=== PATIENT | male | born 1965 | race Hispanic/Latino ===

== ENCOUNTER 2020-09-02 09:19 | Emergency (ER) | payer BC ==
[2020-09-02] MEDS ORDERED: TETANUS & DIPHTHERIA TOX,ADULT 0.5 ML VIAL ONE (10:05)
--- NOTE | 2020-09-02 10:11 | ER ---
Nurse's Notes [facility] Name: Rico Eric Age: 55 yrs Sex: Male : 1965 Arrival Date: 09/02/2020 Time: 09:20 Bed 24 Private MD: Diagnosis: Puncture wound without foreign body of left hand Presentation: 09/02 09:25 Chief complaint: Patient states: puncture wound to palm of left hand with screwdriver aa5 just [employer], no active bleeding noted at this time, dry blood noted to left hand. 09:25 Coronavirus screen: At this time, the client does not indicate any symptoms associated aa5 with coronavirus-19. Ebola Screen: Patient negative for fever greater than or equal to 101.5 degrees Fahrenheit, and additional compatible Ebola Virus Disease symptoms. Initial Sepsis Screen: Does the patient meet any 2 criteria? No. Patient's initial sepsis screen is negative. Does the patient have a suspected source of infection? No. Patient's initial sepsis screen is negative. Risk Assessment: Do you want to hurt yourself or someone else? Patient reports no desire to harm self or others. Onset of symptoms was September 02, 2020. 09:25 Acuity: DK 4 aa5 09:25 Method Of Arrival: Ambulatory aa5 Historical: - Allergies: 09:36 No Known Allergies; aa5 - Home Meds: 09:36 None [Active]; aa5 - PMHx: 09:36 None; aa5 - PSHx: 09:36 None; aa5 - Immunization history:: Last tetanus immunization: unknown. - Social history:: Smoking status: Patient denies any tobacco usage or history of. Screenin:30 Abuse screen: Denies threats or abuse. Nutritional screening: No deficits noted. aa5 Tuberculosis screening: No symptoms or risk factors identified. Fall Risk None identified. Assessment: 09:30 General: Appears uncomfortable, Behavior is calm, cooperative. Pain: Complains of pain aa5 in palm of left hand Pain currently is 5 out of 10 on a pain scale. Quality of pain is described as tender, throbbing, Is continuous. Neuro: Level of Consciousness is awake, alert, obeys commands, Oriented to person, place, time, situation. Cardiovascular: Capillary refill < 3 seconds is brisk in bilateral fingers Patient's skin is warm and dry. Respiratory: Airway is patent Respiratory effort is even, unlabored, Respiratory pattern is regular, symmetrical. GI: Abdomen is round Abd is soft and non tender X 4 quads. : No signs and/or symptoms were reported regarding the genitourinary system. EENT: No signs and/or symptoms were reported regarding the EENT system. Derm: Skin is pink, warm \T\ dry. small puncture wound noted to palm of left hand. Musculoskeletal: Range of motion: intact in all extremities. 09:35 Reassessment: Puncture wound cleaned with Hibiclens and saline. aa5 09:56 Reassessment: Patient is alert, oriented x 3, equal unlabored respirations, skin aa5 warm/dry/pink. Patient states feeling better. Vital Signs: 09:25 BP 131 / 77; Pulse 67; Resp 16 S; Temp 97.8(TE); Pulse Ox 98% on R/A; Weight 68.04 kg aa5 (R); Height 5 ft. 2 in. (157.48 cm) (R); 09:25 Body Mass Index 27.44 (68.04 kg, 157.48 cm) aa5 ED Course: 09:20 Patient arrived in ED. am2 09:24 Arm band placed on Patient placed in an exam room, on a stretcher. aa5 09:24 Patient has correct armband on for positive identification. Bed in low position. Call aa5 light in reach. Side rails up X 1. 09:26 E[facility] Gaines [facility]C [facility]. kb 09:26 Santiago Rutherford MD is Attending Physician. kb 09:28 Kayce Lujan, VAZQUEZ is Primary Nurse. aa5 09:36 Triage completed. aa5 09:56 Hand Left 3 View XRAY In Process Unspecified. EDMS 10:16 No provider procedures requiring assistance completed. Patient did not have IV access ca1 during this emergency room visit. Administered Medications: 09:56 Drug: Tetanus-Diphtheria Toxoid Adult 0.5 ml {Subgrade Tester: [employer]. Exp: aa5 09/02/2021. Lot #: [id number]. } Route: IM; Site: right deltoid; Outcome: 10:10 Discharge ordered by . kb 10:16 Discharged to home ambulatory, with family. ca1 10:16 Condition: stable 10:16 Discharge instructions given to patient, Instructed on discharge instructions, follow up and referral plans. medication usage, wound care, Demonstrated understanding of instructions, follow-up care, medications, wound care, Prescriptions given X 1. 10:17 Patient left the ED. ca1 Signatures: Dispatcher [employer] EDEne Blanc, TRANSITIONAL CARE MANAGER-C TRANSITIONAL CARE MANAGER-Kayce Valladares RN RN aa5 Lesly Carballo am2 Lainey Yoon RN RN ca1
--- NOTE | 2020-09-02 10:11 | EDPHYS ---
Physician Documentation [facility] Name: Rico Eric Age: 55 yrs Sex: Male : 1965 Arrival Date: 09/02/2020 Time: 09:20 Bed 24 Private MD: ED Physician Santiago Rutherford HPI: 09/02 09:46 This 55 yrs old Male presents to ER via Ambulatory with complaints of Hand kb Injury. 09:46 The patient or guardian reports injury, pain, swelling. The complaints affect the palm kb of left hand. Context: The problem was sustained outdoors, resulted from flathead screwdriver slipped and went into palm of left hand. Onset: The symptoms/episode began/occurred just prior to arrival. Modifying factors: The symptoms are alleviated by nothing, the symptoms are aggravated by nothing. Associated signs and symptoms: The patient has no apparent associated signs or symptoms. Severity of symptoms: At their worst the symptoms were mild, in the emergency department the symptoms are unchanged. The patient has not experienced similar symptoms in the past. The patient has not recently seen a physician. Pt reports he was changing the oil in his car, was using a flathead screwdriver to pry off a bolt when it slipped and punctured left palm. Historical: - Allergies: 09:36 No Known Allergies; aa5 - Home Meds: 09:36 None [Active]; aa5 - PMHx: 09:36 None; aa5 - PSHx: 09:36 None; aa5 - Immunization history:: Last tetanus immunization: unknown. - Social history:: Smoking status: Patient denies any tobacco usage or history of. ROS: 09:44 Constitutional: Negative for fever, chills, and weight loss, Neuro: Negative for kb headache, weakness, numbness, tingling, and seizure. 09:44 Skin: Positive for puncture, of the palm of left hand. 09:45 MS/extremity: Positive for pain, puncture, of the palm of left hand. kb Exam: 09:44 Constitutional: This is a well developed, well nourished patient who is awake, alert, kb and in no acute distress. Head/Face: Normocephalic, atraumatic. Respiratory: Respirations even and unlabored. No increased work of breathing, no retractions or nasal flaring. MS/ Extremity: Pulses equal, no cyanosis. Neurovascular intact. Full, normal range of motion. Neuro: Awake and alert, GCS 15, oriented to person, place, time, and situation. Moves all extremities. Normal gait. 09:44 Skin: injury, puncture(s), that are deep, of the palm of left hand. Vital Signs: 09:25 BP 131 / 77; Pulse 67; Resp 16 S; Temp 97.8(TE); Pulse Ox 98% on R/A; Weight 68.04 kg aa5 (R); Height 5 ft. 2 in. (157.48 cm) (R); 09:25 Body Mass Index 27.44 (68.04 kg, 157.48 cm) aa5 MDM: 09:26 Patient medically screened. kb 09:44 Data reviewed: vital signs, nurses notes. Data interpreted: Pulse oximetry: on room air kb is 98 %. Interpretation: normal. Counseling: I had a detailed discussion with the patient and/or guardian regarding: the historical points, exam findings, and any diagnostic results supporting the discharge/admit diagnosis, radiology results, the need for outpatient follow up, a family practitioner, to return to the emergency department if symptoms worsen or persist or if there are any questions or concerns that arise at home. 09/02 09:32 Order name: Hand Left 3 View XRAY kb 09/02 09:32 Order name: Wound Care; Complete Time: 09:35 kb Administered Medications: 09:56 Drug: Tetanus-Diphtheria Toxoid Adult 0.5 ml {Sports Therapist: [employer] Exp: aa5 09/02/2021. Lot #: [id number]. } Route: IM; Site: right deltoid; Disposition: 09/03 08:28 Co-signature as Attending Physician, Santiago Rutherford MD I agree with the assessment and halie plan of care. Disposition: 09/02/20 10:10 Discharged to Home. Impression: Puncture wound without foreign body of left hand. - Condition is Stable. - Discharge Instructions: Puncture Wound, [id number]. - Prescriptions for Keflex 500 mg Oral Capsule - take 1 capsule by ORAL route every 8 hours for 10 days; 30 capsule. - Medication Reconciliation Form, Thank You Letter, Antibiotic Education, Prescription Opioid Use form. - Follow up: Emergency Department; When: As needed; Reason: Worsening of condition. Follow up: Private Physician; When: 2 - 3 days; Reason: Recheck today's complaints, Continuance of care, Re-evaluation by your physician. Signatures: Dispatcher [employer] Ene Baires, WEARING APPAREL FOLDER-Sunny WILLIAMSON-Santiago Mauro MD MD cha Calderon, Audri, RN RN aa5 Lainey Yoon RN RN ca1 Corrections: (The following items were deleted from the chart) 09/02 10:17 10:10 09/02/2020 10:10 Discharged to Home. Impression: Puncture wound without foreign ca1 body of left hand. Condition is Stable. Forms are Medication Reconciliation Form, Thank You Letter, Antibiotic Education, Prescription Opioid Use. Follow up: Emergency Department; When: As needed; Reason: Worsening of condition. Follow up: Private Physician; When: 2 - 3 days; Reason: Recheck today's complaints, Continuance of care, Re-evaluation by your physician. kb
[2020-09-02 10:20] VITALS: BP 131/77; TEMP 97.8; O2SAT 98
--- NOTE | 2020-09-02 10:25 | RAD REPORT ---
EXAM DESCRIPTION: RAD - Hand Left 3 View - 09/02/2020 9:56 am CLINICAL HISTORY: PAIN, puncture wound to palm all the left hand COMPARISON: None. FINDINGS: No fracture, dislocation or periosteal reaction noted. No foreign body or other soft tissu e abnormality. IMPRESSION: Negative left hand examination.
== END 2020-09-02 10:17 | disposition home or self-care (01) ==
LOC: ER 09:19
DX: S61.412A Laceration without foreign body of left hand, initial encounter (principal); W27.0XXA Contact with workbench tool, initial encounter; Z23 Encounter for immunization
CPT/HCPCS: 90471; 90714; 99283